=== PATIENT | male | born 1945 | race Caucasian/White ===

== ENCOUNTER 2022-05-08 08:57 | Inpatient (IN) ==
[~2022-05-08 08:57] MED LIST: ACETAMINOPHEN 325 MG TABLET PO PRN; ALUMINUM/MAGNES/SIMETH MAX STR 30 ML UDCUP PO PRN; DOCUSATE SODIUM 100 MG CAPSULE PO PRN; MAGNESIUM SULF RIDER 2 GM/50 ML PREMIX IV PRN; MAGNESIUM SULF RIDER 4 GM/100 ML PREMIX IV PRN; MORPHINE 2 MG/1 ML SYRINGE IV PRN; ONDANSETRON 4 MG/2 ML VIAL IV PRN; PROMETHAZINE 25 MG TABLET PO PRN; ZALEPLON 5 MG CAPSULE PO PRN; diphenhydrAMINE CAP 25 MG CAPSULE PO PRN; guaiFENesin/DM ER 600-30 MG TABLET PO PRN; hydrALAZINE 20 MG/1 ML VIAL IV PRN
[2022-05-08 13:24] LABS: Basophils # 0.1 10*3/uL (0.0-0.2); Basophils % 1.2 % (0.0-0.8); Eosinophils # 0.1 10*3/uL (0.0-0.87); Eosinophils % 1.7 % (0.00-10.9); Hematocrit 46.6 VOL% (42.0-52.0); Hemoglobin 16.1 GM/DL (14.0-18.0); Immature Granulocytes % 0.4 %; Immature Granulocytes Absolute 0.03 #; Lymphocytes # 1.1 10*3/uL (1.4-4.0); Lymphocytes % 13.8 % (21.2-54.2); Mean Corpuscular HGB Conc 34.5 GM/DL (32-36); Mean Corpuscular Volume 96.9 FL (87-102); Mean Platelet Volume 9.3 FL (9.6-12.0); Monocytes # 0.8 10*3/uL (0.11-0.8); Monocytes % 10.7 % (1.7-12.7); Neutrophils % 72.2 % (38.7-73.9); Platelet Count 194 T/CUMM (130-400); Red Blood Count 4.81 MC/CUMM (3.8-5.5); White Blood Count 7.7 T/CUMM (4-12)
[2022-05-08 13:53] LABS: Albumin 3.4 G/DL (3.4-5.0); Bilirubin,Total 0.7 MG/DL (0.20-1.00); Calcium 8.9 MG/DL (8.5-10.1); Free T4 (Free Thyroxine) 1.34 NG/DL (0.76-1.46); Osmolality,Calculated 279.3 MOS/KG (273-304); Potassium 3.3 MMOL/L (3.5-5.1); Thyroid Stimulating Hormone 5.88 uIU/ml (0.358-3.74); Total Protein 6.9 G/DL (6.4-8.2)
[2022-05-08] MEDS ORDERED: POTASSIUM CHLORIDE 20 MEQ TABLET PO ONE (13:57)
[2022-05-08] MEDS: PANTOPRAZOLE 40 MG TABLET PO SCH (15:05)
[2022-05-08] MEDS: APIXABAN 5 MG TABLET PO SCH (20:22)
[2022-05-08] MEDS: SOTALOL 80 MG TABLET PO SCH (20:22)
[2022-05-09 04:33] LABS: Calcium 8.9 MG/DL (8.5-10.1); Osmolality,Calculated 273.8 MOS/KG (273-304); Potassium 3.2 MMOL/L (3.5-5.1)
[2022-05-09] MEDS: LEVOTHYROXINE 112 MCG TABLET PO SCH (05:36)
[2022-05-09] MEDS: POTASSIUM CHLORIDE 20 MEQ TABLET PO PRN ×3 (05:36→17:29)
[2022-05-09] MEDS ORDERED: LEVOTHYROXINE 100 MCG TABLET PO SCH (06:30)
[2022-05-09] MEDS: DILTIAZEM CD 240 MG CAPSULE PO SCH (08:23)
[2022-05-09] MEDS: PANTOPRAZOLE 40 MG TABLET PO SCH (08:23)
[2022-05-09] MEDS: APIXABAN 5 MG TABLET PO SCH ×2 (08:23→21:12)
[2022-05-09] MEDS: LOSARTAN 25 MG TABLET PO SCH (08:23)
[2022-05-09] MEDS: ASPIRIN EC 81 MG TABLET PO SCH (08:23)
[2022-05-09] MEDS: SOTALOL 80 MG TABLET PO SCH ×2 (08:23→21:07)
[2022-05-09] MEDS: POTASSIUM CHLORIDE 20 MEQ TABLET PO SCH ×2 (08:28→21:07)
[2022-05-09] MEDS: ESCITALOPRAM 10 MG TABLET PO SCH (08:41)
[2022-05-09] MEDS ORDERED: hydroCHLOROthiazide 12.5 MG CAPSULE PO SCH (09:00)
[2022-05-10 06:09] LABS: Calcium 8.6 MG/DL (8.5-10.1); Osmolality,Calculated 284.1 MOS/KG (273-304)
[2022-05-10] MEDS: APIXABAN 5 MG TABLET PO SCH (09:33)
[2022-05-10] MEDS: PANTOPRAZOLE 40 MG TABLET PO SCH (09:34)
[2022-05-10] MEDS: ESCITALOPRAM 10 MG TABLET PO SCH (09:34)
[2022-05-10] MEDS: LOSARTAN 25 MG TABLET PO SCH (09:34)
[2022-05-10] MEDS: ASPIRIN EC 81 MG TABLET PO SCH (09:34)
[2022-05-10] MEDS: SOTALOL 80 MG TABLET PO SCH (09:34)
[2022-05-10] MEDS: DILTIAZEM CD 240 MG CAPSULE PO SCH (09:34)
[2022-05-10 09:35] VITALS: BP 145/82
[2022-05-10] MEDS: POTASSIUM CHLORIDE 20 MEQ TABLET PO SCH (09:46)
[2022-05-10] MEDS: LEVOTHYROXINE 112 MCG TABLET PO SCH (09:46)
== END 2022-05-10 09:50 | disposition home or self-care (01) | DRG 310 ==
LOC: INTOOBSV 12:25 → N.TELES 12:25 → OBSVTOIN 12:25
PROVIDERS: ADMIT Internal Medicine Cardiovascular Disease; ATTEND Internal Medicine Cardiovascular Disease

== ENCOUNTER 2022-05-16 07:16 | Inpatient (IN) ==
[2022-05-16] MEDS ORDERED: ASPIRIN 325 MG TABLET PO STA (07:34)
[2022-05-16] MEDS ORDERED: NITROGLYCERIN SL 0.4 MG TABLET SL PRN (07:34)
[2022-05-16 08:02] LABS: Basophils # 0.1 10*3/uL (0.0-0.2); Basophils % 1.1 % (0.0-0.8); Eosinophils # 0.1 10*3/uL (0.0-0.87); Eosinophils % 1.3 % (0.00-10.9); Hematocrit 45.7 VOL% (42.0-52.0); Hemoglobin 15.6 GM/DL (14.0-18.0); Immature Granulocytes % 0.3 %; Immature Granulocytes Absolute 0.03 #; Lymphocytes % 10.5 % (21.2-54.2); Mean Corpuscular HGB Conc 34.1 GM/DL (32-36); Mean Corpuscular Volume 97.4 FL (87-102); Mean Platelet Volume 9.5 FL (9.6-12.0); Monocytes # 0.8 10*3/uL (0.11-0.8); Monocytes % 9.1 % (1.7-12.7); Neutrophils % 77.7 % (38.7-73.9); Platelet Count 197 T/CUMM (130-400); Red Blood Count 4.69 MC/CUMM (3.8-5.5); Red Cell Distribution Width 14.7 % (9.3-17.3); White Blood Count 9.2 T/CUMM (4-12)
[2022-05-16 08:33] LABS: Albumin 3.7 G/DL (3.4-5.0); Bilirubin,Total 0.9 MG/DL (0.20-1.00); Osmolality,Calculated 277.5 MOS/KG (273-304); Potassium 3.5 MMOL/L (3.5-5.1); Total Protein 6.5 G/DL (6.4-8.2)
[2022-05-16] MEDS ORDERED: FUROSEMIDE 100 MG/10 ML VIAL IV STA (08:50)
[2022-05-16] MEDS ORDERED: ACETAMINOPHEN 325 MG TABLET PO PRN (09:35)
[2022-05-16] MEDS ORDERED: GLUCAGON 1 MG VIAL IM PRN (09:35)
[2022-05-16] MEDS ORDERED: ONDANSETRON 4 MG/2 ML VIAL IV PRN (09:35)
[2022-05-16] MEDS ORDERED: DEXTROSE 10% 250 ML BAG IV PRN (09:46)
[2022-05-16] MEDS: SPIRONOLACTONE 25 MG TABLET PO SCH (11:39)
[2022-05-16] MEDS ORDERED: APIXABAN 5 MG TABLET PO SCH (21:00)
[2022-05-16] MEDS: SOTALOL 80 MG TABLET PO SCH (22:09)
[2022-05-16] MEDS: ASPIRIN EC 81 MG TABLET PO SCH (22:09)
[2022-05-16] MEDS: PRAVASTATIN 80 MG PO SCH (22:09)
[2022-05-16] MEDS: DILTIAZEM CD 240 MG CAPSULE PO SCH (22:09)
[2022-05-16] MEDS: ESCITALOPRAM 10 MG TABLET PO SCH (22:12)
[2022-05-17] MEDS: LEVOTHYROXINE 112 MCG TABLET PO SCH (06:27)
[2022-05-17 06:29] LABS: Basophils # 0.1 10*3/uL (0.0-0.2); Basophils % 0.8 % (0.0-0.8); Eosinophils # 0.1 10*3/uL (0.0-0.87); Eosinophils % 1.4 % (0.00-10.9); Hematocrit 44.3 VOL% (42.0-52.0); Hemoglobin 15.1 GM/DL (14.0-18.0); Immature Granulocytes % 0.4 %; Immature Granulocytes Absolute 0.03 #; Lymphocytes % 12.6 % (21.2-54.2); Mean Corpuscular HGB Conc 34.1 GM/DL (32-36); Mean Corpuscular Volume 98.4 FL (87-102); Mean Platelet Volume 9.9 FL (9.6-12.0); Monocytes # 0.7 10*3/uL (0.11-0.8); Monocytes % 8.6 % (1.7-12.7); Neutrophils % 76.2 % (38.7-73.9); Platelet Count 165 T/CUMM (130-400); Red Cell Distribution Width 14.6 % (9.3-17.3); White Blood Count 7.8 T/CUMM (4-12)
[2022-05-17 06:45] LABS: Calcium 8.6 MG/DL (8.5-10.1); Potassium 3.1 MMOL/L (3.5-5.1)
[2022-05-17] MEDS ORDERED: MAGNESIUM SULF RIDER 2 GM/50 ML PREMIX IV PRN (07:03)
[2022-05-17] MEDS ORDERED: DIAZEPAM 5 MG TABLET PO ONE (07:03)
[2022-05-17] MEDS ORDERED: diphenhydrAMINE CAP 50 MG CAPSULE PO ONE (07:03)
[2022-05-17 07:09] LABS: Risk Ratio 2.52; VLDL Cholesterol 14.8 MG/DL
[2022-05-17] MEDS ORDERED: POTASSIUM CHLORIDE 20 MEQ TABLET PO ONE (07:18)
[2022-05-17] MEDS ORDERED: HEPARIN/NACL 0.9% 2 UNITS/ML 2,000 UNIT/1,000 ML BAG IV ONE (07:42)
[2022-05-17] MEDS: PANTOPRAZOLE 40 MG TABLET PO SCH ×2 (07:49→08:43)
[2022-05-17] MEDS: SOTALOL 80 MG TABLET PO SCH ×3 (07:50→20:54)
[2022-05-17] MEDS: DILTIAZEM CD 240 MG CAPSULE PO SCH ×3 (07:50→20:55)
[2022-05-17] MEDS: SPIRONOLACTONE 25 MG TABLET PO SCH ×2 (07:51→08:44)
[2022-05-17] MEDS: LOSARTAN 25 MG TABLET PO SCH ×2 (07:51→08:45)
[2022-05-17] MEDS ORDERED: MIDAZOLAM 2 MG/2 ML VIAL ONE (08:01)
[2022-05-17] MEDS ORDERED: HYDROmorphone 1 MG/1 ML SYRINGE ONE (08:01)
[2022-05-17] MEDS ORDERED: diphenhydrAMINE 50 MG/1 ML VIAL ONE (08:36)
[2022-05-17] MEDS ORDERED: BIVALIRUDIN 250 MG VIAL IV ONE (09:14)
[2022-05-17] MEDS ORDERED: TICAGRELOR 90 MG TABLET ONE (09:52)
[2022-05-17] MEDS ORDERED: NALOXONE 0.4 MG/ML VIAL ONE (10:00)
[2022-05-17] MEDS ORDERED: FUROSEMIDE 40 MG/4 ML VIAL ONE (10:09)
[2022-05-17] MEDS ORDERED: ALBUTEROL/IPRATROPIUM 3 ML NEB RESP TX ONE (10:10)
[2022-05-17] MEDS: FUROSEMIDE 40 MG/4 ML VIAL IV SCH (10:16)
[2022-05-17 11:09] LABS: Bilirubin,Urine Negative (Negative); Blood, Urine Moderate mg/dL (Negative); Glucose,Urine (UA) Negative (Negative); Ketones,Urine Negative (Negative); Mucus,Urine Occasional /LPF (Occasional); Nitrite,Urine Negative (Negative); Protein,Urine 100 mg/dL (Negative); RBC,Urine 4 /HPF (0-4); Urine Appearance Clear (Clear); Urine Color Light Yellow (Yellow); Urine Urobilinogen 0.2 eU/dL (<2.0); Urine pH 5.5 (4.5-8.0)
[2022-05-17] MEDS ORDERED: methylPREDNISolone SOD SUC 125 MG/2 ML VIAL IV ONE (11:28)
[2022-05-17] MEDS: POTASSIUM CHLORIDE RIDER 10 MEQ/100 ML PREMIX IV PRN ×2 (12:09→13:08)
[2022-05-17] MEDS: ALBUTEROL/IPRATROPIUM 3 ML NEB RESP TX SCH ×2 (14:00→19:30)
[2022-05-17] MEDS ORDERED: TICAGRELOR 90 MG TABLET PO ONE (14:12)
[2022-05-17] MEDS: methylPREDNISolone SOD SUC 40 MG/1 ML VIAL IV SCH (17:50)
[2022-05-17] MEDS: ESCITALOPRAM 10 MG TABLET PO SCH (20:54)
[2022-05-17] MEDS: TICAGRELOR 90 MG TABLET PO SCH (20:54)
[2022-05-17] MEDS: CLORAZEPATE 3.75 MG TABLET PO PRN (20:54)
[2022-05-17] MEDS: ASPIRIN EC 81 MG TABLET PO SCH (20:55)
[2022-05-17] MEDS: PRAVASTATIN 80 MG PO SCH (21:05)
[2022-05-18] MEDS: ALBUTEROL/IPRATROPIUM 3 ML NEB RESP TX SCH ×7 (00:08→23:45)
[2022-05-18] MEDS: methylPREDNISolone SOD SUC 40 MG/1 ML VIAL IV SCH ×3 (02:44→18:40)
[2022-05-18 05:19] LABS: Basophils % 0.1 % (0.0-0.8); Hematocrit 44.4 VOL% (42.0-52.0); Hemoglobin 15.3 GM/DL (14.0-18.0); Immature Granulocytes % 0.5 %; Immature Granulocytes Absolute 0.07 #; Lymphocytes # 0.4 10*3/uL (1.4-4.0); Lymphocytes % 2.5 % (21.2-54.2); Mean Corpuscular HGB Conc 34.5 GM/DL (32-36); Mean Corpuscular Volume 97.2 FL (87-102); Mean Platelet Volume 9.8 FL (9.6-12.0); Monocytes # 0.2 10*3/uL (0.11-0.8); Neutrophils % 95.9 % (38.7-73.9); Platelet Count 171 T/CUMM (130-400); Red Blood Count 4.57 MC/CUMM (3.8-5.5); Red Cell Distribution Width 14.3 % (9.3-17.3); White Blood Count 14.6 T/CUMM (4-12)
[2022-05-18 05:37] LABS: Calcium 8.8 MG/DL (8.5-10.1); Osmolality,Calculated 286.4 MOS/KG (273-304); Potassium 3.6 MMOL/L (3.5-5.1)
[2022-05-18] MEDS ORDERED: POTASSIUM CHLORIDE 20 MEQ TABLET PO ONE (05:45)
[2022-05-18] MEDS ORDERED: FUROSEMIDE 40 MG/4 ML VIAL IV ONE (05:46)
[2022-05-18] MEDS: LEVOTHYROXINE 112 MCG TABLET PO SCH (05:56)
[2022-05-18 06:03] LABS: Anisocytosis 1+; Band Neutrophils 9 % (0-10); Lymphocytes 4 % (20-55); Platelet Estimate Normal; Total Cells Counted 100
[2022-05-18 06:04] LABS: Macrocytosis Slight
[2022-05-18] MEDS: SOTALOL 80 MG TABLET PO SCH ×2 (08:51→20:35)
[2022-05-18] MEDS: SPIRONOLACTONE 25 MG TABLET PO SCH (08:51)
[2022-05-18] MEDS: TICAGRELOR 90 MG TABLET PO SCH ×2 (08:51→20:36)
[2022-05-18] MEDS: DILTIAZEM CD 240 MG CAPSULE PO SCH ×2 (08:52→20:36)
[2022-05-18] MEDS: PANTOPRAZOLE 40 MG TABLET PO SCH (08:52)
[2022-05-18] MEDS: LOSARTAN 25 MG TABLET PO SCH (08:52)
[2022-05-18] MEDS: FUROSEMIDE 40 MG/4 ML VIAL IV SCH (10:53)
[2022-05-18] MEDS: CLORAZEPATE 3.75 MG TABLET PO PRN (20:36)
[2022-05-18] MEDS: ESCITALOPRAM 10 MG TABLET PO SCH (20:36)
[2022-05-18] MEDS: ASPIRIN EC 81 MG TABLET PO SCH (20:36)
[2022-05-18] MEDS: PRAVASTATIN 80 MG PO SCH (20:37)
[2022-05-19] MEDS: ALBUTEROL/IPRATROPIUM 3 ML NEB RESP TX SCH ×2 (02:04→08:08)
[2022-05-19] MEDS: methylPREDNISolone SOD SUC 40 MG/1 ML VIAL IV SCH (02:28)
[2022-05-19 03:57] LABS: Calcium 8.6 MG/DL (8.5-10.1); Osmolality,Calculated 294.3 MOS/KG (273-304); Potassium 3.7 MMOL/L (3.5-5.1)
[2022-05-19] MEDS: LEVOTHYROXINE 112 MCG TABLET PO SCH (05:59)
[2022-05-19] MEDS: DILTIAZEM CD 240 MG CAPSULE PO SCH (08:39)
[2022-05-19] MEDS: SPIRONOLACTONE 25 MG TABLET PO SCH (08:40)
[2022-05-19] MEDS: LOSARTAN 25 MG TABLET PO SCH (08:40)
[2022-05-19] MEDS: TICAGRELOR 90 MG TABLET PO SCH (08:40)
[2022-05-19] MEDS: PANTOPRAZOLE 40 MG TABLET PO SCH (08:40)
[2022-05-19] MEDS: SOTALOL 80 MG TABLET PO SCH (08:40)
[2022-05-19] MEDS ORDERED: APIXABAN 5 MG TABLET PO SCH (09:00)
[2022-05-19] MEDS ORDERED: methylPREDNISolone SOD SUC 40 MG/1 ML VIAL IV SCH (09:00)
[2022-05-19] MEDS ORDERED: buPROPion XL 150 MG TABLET PO SCH (10:00)
[2022-05-19 12:09] LABS: Basophils % 0.1 % (0.0-0.8); Hematocrit 40.7 VOL% (42.0-52.0); Immature Granulocytes % 0.9 %; Immature Granulocytes Absolute 0.19 #; Lymphocytes # 0.3 10*3/uL (1.4-4.0); Lymphocytes % 1.5 % (21.2-54.2); Mean Corpuscular HGB Conc 34.4 GM/DL (32-36); Mean Corpuscular Volume 98.1 FL (87-102); Mean Platelet Volume 10.2 FL (9.6-12.0); Monocytes # 0.5 10*3/uL (0.11-0.8); Monocytes % 2.5 % (1.7-12.7); Platelet Count 190 T/CUMM (130-400); Red Blood Count 4.15 MC/CUMM (3.8-5.5); Red Cell Distribution Width 14.6 % (9.3-17.3); White Blood Count 20.6 T/CUMM (4-12)
[2022-05-19 12:27] VITALS: BP 120/75
[2022-05-19 12:29] LABS: Lymphocytes 5 % (20-55); Platelet Estimate Adequate; Total Cells Counted 100
[2022-05-19 12:31] LABS: Calcium 9.2 MG/DL (8.5-10.1); Osmolality,Calculated 292.4 MOS/KG (273-304); Potassium 3.6 MMOL/L (3.5-5.1)
== END 2022-05-19 13:45 | disposition home or self-care (01) | DRG 246 ==
LOC: N.EDINP 07:16 → N.ED 07:16 → OBSVTOIN 09:11 → SUATTDRO 09:11 → N.TELEN 15:48 → N.ICU 05-17 11:37 → SUATTDRO 05-17 11:46
PROVIDERS: ADMIT Internal Medicine; ATTEND Internal Medicine
PROC: CLCCHCL (ICD-10-PCS; 2022-05-17 08:45)